=== PATIENT | female | born 1960 | race Caucasian/White ===

== ENCOUNTER 2018-01-26 16:21 | Emergency (ER) | payer BC ==
--- NOTE | 2018-01-26 17:54 | UC ---
Dental HPI - HPI Summary HPI Summary: 58 yo female presents with abscess to right upper tooth. She called her dentist today and scheduled an appt for Monday (2 days from today) and they recommended she be seen to be placed on antibiotics before her visit. She is able to eat and drink with mild pain. Denies fever or chills - History of Current Complaint Stated Complaint: TOOTH ABCESS Hx Obtained From: Patient Onset/Duration: Sudden Onset Severity: Mild Pain Intensity: 2 Pain Scale Used: 0-10 Numeric - Allergies/Home Medications Allergies/Adverse Reactions: Allergies Allergy/AdvReac Type Severity Reaction Status Date / Time No Known Allergies Allergy Verified 01/26/18 18:06 Home Medications: Home Medications Aspirin 81 mg CHEW TAB* 81 mg PO DAILY 01/26/18 [History Confirmed 01/26/18] Clopidogrel TAB* [Plavix TAB*] 75 mg PO DAILY 01/26/18 [History Confirmed ] Levothyroxine TAB* [Synthroid TAB*] 75 mcg PO 0800 01/26/18 [History Confirmed 01/26/18] PARoxetine HCL TAB* [Paxil TAB*] 20 mg PO DAILY 01/26/18 [History Confirmed 04/05] buPROPion TAB* [Wellbutrin TAB*] 100 mg PO BID 01/26/18 [History Confirmed 01/26] PMH/Surg Hx/FS Hx/Imm Hx Endocrine History: Hypothyroidism Cardiovascular History: Cardiac Disease Psychological History: Anxiety, Depression - Surgical History Surgical History: None Surgery Procedure, Year, and Place: NONE - Family History Known Family History: Positive: Cardiac Disease, Hypertension - Social History Lives: With Family Alcohol Use: Occasionally Substance Use Type: None Smoking Status (MU): Former Smoker Review of Systems Constitutional: Negative Skin: Negative Eyes: Negative ENT: Dental Pain Respiratory: Negative Cardiovascular: Negative Gastrointestinal: Negative Neurological: Negative Psychological: Negative All Other Systems Reviewed And Are Negative: Yes Physical Exam - Summary Physical Exam Summary: GENERAL: NAD. WDWN. No pain distress. SKIN: No rashes, sores, lesions, or open wounds. HEENT: Head: AT/NC Nose: NTTP maxillary and frontal sinus. NECK: Supple. Nontender. No lymphadenopathy. CHEST: No accessory muscle use. Breathing comfortably and in no distress. CV: Pulses intact. Brisk cap refill. NEURO: Alert. CN II-XII grossly intact. PSYCH: Age appropriate behavior. Triage Information Reviewed: Yes Vital Signs: Vital Signs: Temp Pulse Resp BP Pulse Ox 97.6 F 70 16 134/83 100 01/26/18 17:54 01/26/18 17:54 01/26/18 17:54 01/26/18 17:54 01/26/18 17:54 Vital Signs Reviewed: Yes Dental: Positive: Percussion Tenderness @ - Tooth #6, Gross Decay/Caries @ - Throughout, Abscess @ - Tooth #6. Negative: Dental Fracture @ Dental Complaint Course/Dx - Course Course Of Treatment: Tooth abscess Tooth #6 - Differential Dx/Diagnosis Provider Diagnoses: Tooth #6 abscess Discharge - Sign-Out/Discharge Documenting (check all that apply): Patient Departure - Discharge Plan Condition: Stable Disposition: HOME Prescriptions: Amoxicillin PO (*) [Amoxicillin 500 MG CAP*] 500 mg PO Q12H #14 cap Patient Education Materials: Dental Abscess (ED) Referrals: Shi Dawson MD [Primary Care Provider] - Additional Instructions: If you develop a fever, shortness of breath, chest pain, new or worsening symptoms - please call your PCP or go to the ED. Your blood pressure was high at todays visit. Please see your primary provider within 4 weeks for recheck and re-evaluation. - Billing Disposition and Condition Condition: STABLE Disposition: Home
[2018-01-26 17:59] VITALS: BP 134/83
== END 2018-01-26 18:21 | disposition home or self-care (01) ==
LOC: UCEAST 16:21
DX: K04.7 Periapical abscess without sinus (principal); E03.9 Hypothyroidism, unspecified; I25.10 Atherosclerotic heart disease of native coronary artery without angina pectoris; Z79.01 Long term (current) use of anticoagulants; Z79.82 Long term (current) use of aspirin; Z82.49 Family history of ischemic heart disease and other diseases of the circulatory system; Z87.891 Personal history of nicotine dependence
CPT/HCPCS: 99212; G0463